=== PATIENT | male | born 1955 | race Caucasian/White ===

== ENCOUNTER 2024-10-31 00:49 | Emergency (ER) | payer SELFPAY ==
[~2024-10-31] VITALS: Ht 175.3 cm; Wt 89.8 kg
[2024-10-31 00:51] VITALS: O2SAT 96
== END 2024-10-31 01:11 | disposition left against medical advice (07) ==
LOC: ER 00:52
DX: I48.91 Unspecified atrial fibrillation (principal); I10 Essential (primary) hypertension; R00.0 Tachycardia, unspecified; R00.2 Palpitations; Z79.01 Long term (current) use of anticoagulants; Z95.5 Presence of coronary angioplasty implant and graft
CPT/HCPCS: A4606; A4663